=== PATIENT | female | born 1995 | race Caucasian/White ===

== ENCOUNTER 2019-05-25 06:03 | Inpatient (IN) | payer BC ==
[2019-05-25] MEDS ORDERED: Sodium Chloride 0.9% 10 ML Syringe FLUSH PRN (06:27)
[2019-05-25] MEDS ORDERED: Ondansetron 4 MG/2 ML SDV IVPUSH PRN (06:27)
[2019-05-25] MEDS ORDERED: Nalbuphine 10 MG/1 ML Vial IVPUSH PRN (06:27)
[2019-05-25] MEDS ORDERED: Oxytocin/Lactated Ringers 10 UNIT/1,000 ML BAG IV SCH ×2 (06:30)
--- NOTE | 2019-05-25 07:19 | PCM.LDHP ---
L&D History of Present Illness - General Date of Service: 05/25/19 Admit Problem/Dx: Patient Status Order with Admit Dx/Problem 05/25/19 06:27 Patient Status [ADT] Routine Admission Diagnosis/Problem Admission Diagnosis/Problem - History of Present Illness Introduction:: Patient is a 23 year old A- GBS negative female at 38-1 weeks gestational age with routine care who presents today with rupture of membranes. BRYANT of 06/07/19 based on LMP of 08/31/18 and ultrasound done 11/20/18. Prior to , menstrual cycles were regular, approximately 28 days. Patient was not on contraception prior to . Initial labs on 11/20/18 demonstrated blood type A- with negative antibody screen, Hemoglobin of 13.8 and platelets of 304,000. Patient was rubella IgG positive and Hepatitis B surface antigen negative. HIV negative, Chlamydia and gonorrhea negative. Pap smear was normal. Subsequent labs on 03/14/19 demonstrated hemoglobin of 12.2, platelets of 277, 000, negative repeat antibody screen. Glucose screen was initially elevated on 03/14/19 at 187, with normal three hour glucose tolerance test with values of 106, 99, and 112 at 1,2,3 hours respectively. 20 week ultrasound demonstrated normal anatomy. Patient was given Rhogam 03/19/19. Patient GBS negative on 05/10/19. Patient plans to breast feed and is consider pain management options. She would prefer Nubain prior to epidural at this point. - Related Data Allergies/Adverse Reactions: Allergies Allergy/AdvReac Type Severity Reaction Status Date / Time meperidine Allergy Nausea Verified 05/25/19 06:11 Home Medications: Home Meds Vits #93/Iron Fum/FA [ Formula Tablet] 05/25/19 [History] Past Medical History Gastrointestinal History: Reports: Irritable Bowel Syndrome - Past Surgical History HEENT Surgical History: Reports: Adenoidectomy, Oral Surgery, Tonsillectomy Musculoskeletal Surgical History: Reports: Other (See Below) Other Musculoskeletal Surgeries/Procedures:: right foot foreign body removal. Social & Family History - Family History Family Medical History: Noncontributory - Tobacco Use Smoking Status *Q: Never Smoker - Tobacco Core Measures Tobacco Use/Smoking Within Last 30 Days: No - Caffeine Use Caffeine Use: Reports: Coffee - Alcohol Use Alcohol Use History: Yes Date of Last Drink: 09/25/18 - Recreational Drug Use Recreational Drug Use: No - Living Situation & Occupation Living situation: Reports: , with Spouse Occupation: Employed [employer] Review of Systems - Review of Systems: Review Of Systems: See Below General: Reports: No Symptoms HEENT: Reports: No Symptoms Pulmonary: Reports: No Symptoms Cardiovascular: Reports: No Symptoms Gastrointestinal: Reports: No Symptoms Genitourinary: Reports: No Symptoms Musculoskeletal: Reports: No Symptoms Skin: Reports: No Symptoms Psychiatric: Reports: No Symptoms Neurological: Reports: No Symptoms Immunologic: Reports: No Symptoms L&D Exam - Exam Exam: See Below - Vital Signs Vital Signs: Last Vital Signs Temp 98.9 F 05/25/19 06:06 Pulse 90 05/25/19 06:06 Resp 16 05/25/19 06:06 BP 119/65 05/25/19 06:06 Pulse Ox 99 05/25/19 06:06 Weight: 81.102 kg - OB Specific Movement: Active Heart Tones: Present Heart Tones per Min: 150 Heart Rate (FHR) Variability: Moderate (6-25 bmp) Presentation: Vertex - Burger Score Burger Score Effacement: >80% Burger Score Dilation: 1-2 cm - Exam General: Alert, Oriented HEENT: Conjunctiva Clear, EACs Clear, EOMI, Hearing Intact, Mucosa Moist & [place] Neck: Supple, Trachea Midline Lungs: Clear to Auscultation, Normal Respiratory Effort Cardiovascular: Regular Rate, Regular Rhythm GI/Abdominal Exam: Normal Bowel Sounds, Soft, No Distention Back Exam: Normal Inspection Extremities: Normal Inspection, Non-Tender, No Pedal Edema, Normal Capillary Refill Skin: Warm, Dry, Intact Neurological: Cranial Nerves Intact Psychiatric: Alert, Normal Affect, Normal Mood - Problem List (1) with 38 completed weeks gestation SNOMED Code(s): 67544501 ICD Code: Z3A.38 - 38 WEEKS GESTATION OF Status: Acute Current Visit: Yes (2) Rupture of membranes with clear amniotic fluid SNOMED Code(s): 266332964, 883483825 ICD Code: [id number] - Status: Acute Current Visit: Yes (3) Rh negative status during SNOMED Code(s): 302743572 ICD Code: O26.899 - OTH RELATED CONDITIONS, UNSPECIFIED TRIMESTER; Z67.91 - UNSPECIFIED BLOOD TYPE, RH NEGATIVE Status: Acute Current Visit: Yes Problem List Initiated/Reviewed/Updated: Yes Orders Last 24hrs: Active Orders 24 hr Category Date Time Status Patient Status [ADT] Routine ADT 05/25/19 06:27 Active Activity as Tolerated [RC] PFP Care 05/25/19 06:27 Active Communication Order [RC] ASDIRECTED Care 05/25/19 06:27 Active Heart Tones [RC] ASDIRECTED Care 05/25/19 06:27 Active Non Stress Test [RC] PER UNIT ROUTINE Care 05/25/19 06:27 Active Notify Provider [RC] PFP Care 05/25/19 06:27 Active Notify Provider [RC] PRN Care 05/25/19 06:27 Active Peripheral IV Care [RC] . DIRECTED Care 05/25/19 06:27 Active Vital Signs [RC] PER UNIT ROUTINE Care 05/25/19 06:27 Active Regular Diet [DIET] Diet 05/25/19 Breakfast Active CBC WITH AUTO DIFF [HEME] Routine Lab 05/25/19 06:27 Ordered RAPID PLASMA REAGIN,RPR [CHEM] Routine Lab 05/25/19 06:27 Ordered Lactated Ringers [Ringers, Lactated] 1,000 ml Med 05/25/19 06:30 Active IV ASDIRECTED Nalbuphine [Nubain] Med 05/25/19 06:27 Active 10 mg IVPUSH Q2H PRN Ondansetron [Zofran] Med 05/25/19 06:27 Active 4 mg IVPUSH Q4H PRN Oxytocin/Lactated Ringers [Pitocin in LR 10 Units/1,000 Med 05/25/19 06:30 Active ML] 10 unit in 1,000 ml IV .CONTINUOUS Oxytocin/Lactated Ringers [Pitocin in LR 10 Units/1,000 Med 05/25/19 06:30 Active ML] 10 unit in 1,000 ml IV TITRATE Sodium Chloride 0.9% [Saline Flush] Med 05/25/19 06:27 Active 10 ml FLUSH ASDIRECTED PRN Electronic Heart Tones Ext w TOCO [WOMSER] Oth 05/25/19 06:27 Ordered Routine Electronic Heart Tones Internal [WOMSER] Per Unit Oth 05/25/19 06:27 Ordered Routine Peripheral IV Insertion Adult [OM.PC] Routine Oth 05/25/19 06:27 Ordered Resuscitation Status Routine Resus Stat 05/25/19 06:27 Ordered Medication Orders Lactated Ringer's (Ringers, Lactated) 1,000 mls @ 100 mls/hr IV ASDIRECTED NELDA Oxytocin/Lactated Ringer's (Pitocin In Lr 10 Units/1,000 Ml) 10 unit in 1,000 mls @ 500 mls/hr IV .CONTINUOUS NELDA Oxytocin/Lactated Ringer's (Pitocin In Lr 10 Units/1,000 Ml) 10 unit in 1,000 mls @ 12 mls/hr IV TITRATE NELDA; Protocol Nalbuphine HCl (Nubain) 10 mg IVPUSH Q2H PRN PRN Reason: Pain Ondansetron HCl (Zofran) 4 mg IVPUSH Q4H PRN PRN Reason: Nausea/Vomiting Sodium Chloride (Saline Flush) 10 ml FLUSH ASDIRECTED PRN PRN Reason: Keep Vein Open Assessment/Plan Comment:: Assessment: at 38-1 weeks gestational age with spontaneous rupture of membranes. GBS negative A- with negative antibody screen and Rhogam administration at 28 weeks Plan: We will continue to monitor progress and consider Pitocin to augment labor. Patient is planning on breast feeding and she is considering her pain management options. She would prefer Nubain prior to epidural at this point.
[2019-05-25] MEDS: Lactated Ringers 1,000 ML IV SCH ×3 (07:42→13:56)
[2019-05-25] MEDS ORDERED: fentaNYL 100 MCG/2 ML SDV ONE (12:29)
--- NOTE | 2019-05-25 13:00 | PCM.PREANE ---
Preanesthetic Assessment - Anesthesia/Transfusion/Family Hx Anesthesia History: Prior Anesthesia Without Reaction Transfusion History: No Prior Transfusion(s) - Review of Systems General: No Symptoms Pulmonary: No Symptoms Cardiovascular: No Symptoms Gastrointestinal: No Symptoms Neurological: No Symptoms - Physical Assessment NPO Status Date: 05/25/19 NPO Status Time: 12:00 (CLQ) Vital Signs: Last Vital Signs Temp 98.9 F 05/25/19 06:06 Pulse 90 05/25/19 06:06 Resp 16 05/25/19 06:06 BP 119/65 05/25/19 06:06 Pulse Ox 99 05/25/19 06:06 Height: 1.7 m Weight: 81.102 kg ASA Class: 2 Mental Status: Alert & Oriented x3 Airway Class: Mallampati = 1 Dentition: Reports: Normal Dentition Thyro-Mental Finger Breadths: 3 Mouth Opening Finger Breadths: 3 ROM/Head Extension: Full Lungs: Clear to Auscultation, Normal Respiratory Effort Cardiovascular: Regular Rate, Regular Rhythm - Lab Values: Laboratory Last Values WBC 9.76 K/mm3 (3.98-10.04) 05/25/19 06:42 RBC 3.71 M/mm3 (3.98-5.22) L 05/25/19 06:42 Hgb 10.8 gm/dl (11.2-15.7) L 05/25/19 06:42 Hct 33.0 % (34.1-44.9) L 05/25/19 06:42 MCV 88.9 fl (79.4-94.8) 05/25/19 06:42 MCH 29.1 pg (25.6-32.2) 05/25/19 06:42 MCHC 32.7 g/dl (32.2-35.5) 05/25/19 06:42 RDW Std Deviation 40.7 fL (36.4-46.3) 05/25/19 06:42 Plt Count 248 K/mm3 (182-369) 05/25/19 06:42 MPV 10.9 fl (9.4-12.3) 05/25/19 06:42 Neut % (Auto) 79.0 % (34.0-71.1) H 05/25/19 06:42 Lymph % (Auto) 13.1 % (19.3-51.7) L 05/25/19 06:42 [place] % (Auto) 6.7 % (4.7-12.5) 05/25/19 06:42 Eos % (Auto) 0.7 (0.7-5.8) 05/25/19 06:42 Baso % (Auto) 0.2 % (0.1-1.2) 05/25/19 06:42 Neut # (Auto) 7.71 K/mm3 (1.56-6.13) H 05/25/19 06:42 Lymph # (Auto) 1.28 K/mm3 (1.18-3.74) 05/25/19 06:42 [place] # (Auto) 0.65 K/mm3 (0.24-0.36) H 05/25/19 06:42 Eos # (Auto) 0.07 K/mm3 (0.04-0.36) 05/25/19 06:42 Baso # (Auto) 0.02 K/mm3 (0.01-0.08) 05/25/19 06:42 - Allergies Allergies/Adverse Reactions: Allergies Allergy/AdvReac Type Severity Reaction Status Date / Time meperidine Allergy Nausea Verified 05/25/19 06:11 - Acknowledgements Anesthesia Type Planned: Spinal, Epidural Pt an Appropriate Candidate for the Planned Anesthesia: Yes Alternatives and Risks of Anesthesia Discussed w Pt/Guardian: Yes Pt/Guardian Understands and Agrees with Anesthesia Plan: Yes PreAnesthesia Questionnaire Gastrointestinal History: Reports: Irritable Bowel Syndrome - Past Surgical History HEENT Surgical History: Reports: Adenoidectomy, Oral Surgery, Tonsillectomy Musculoskeletal Surgical History: Reports: Other (See Below) Other Musculoskeletal Surgeries/Procedures:: right foot foreign body removal. - SUBSTANCE USE Smoking Status *Q: Never Smoker Date of Last Drink: 09/25/18 Recreational Drug Use History: No - HOME MEDS Home Medications: Home Meds Vits #93/Iron Fum/FA [ Formula Tablet] 05/25/19 [History] - CURRENT (IN HOUSE) MEDS Current Meds: Current Medications Lactated Ringer's (Ringers, Lactated) 1,000 mls @ 100 mls/hr IV ASDIRECTED NELDA Last Admin: 05/25/19 12:45 Dose: 999 mls/hr Oxytocin/Lactated Ringer's (Pitocin In Lr 10 Units/1,000 Ml) 10 unit in 1,000 mls @ 500 mls/hr IV .CONTINUOUS NELDA Oxytocin/Lactated Ringer's (Pitocin In Lr 10 Units/1,000 Ml) 10 unit in 1,000 mls @ 12 mls/hr IV TITRATE NELDA; Protocol Last Titration: 05/25/19 11:15 Dose: 6 munits/min, 36 mls/hr Nalbuphine HCl (Nubain) 10 mg IVPUSH Q2H PRN PRN Reason: Pain Ondansetron HCl (Zofran) 4 mg IVPUSH Q4H PRN PRN Reason: Nausea/Vomiting Sodium Chloride (Saline Flush) 10 ml FLUSH ASDIRECTED PRN PRN Reason: Keep Vein Open Discontinued Medications Fentanyl (Sublimaze) Confirm Administered Dose 100 mcg .ROUTE .K-MED ONE Stop: 05/25/19 12:30
[2019-05-25] MEDS ORDERED: ePHEDrine 50 MG/ML SDV IVPUSH PRN (13:30)
[2019-05-25] MEDS ORDERED: fentaNYL/Bupivacaine/NS 2 MCG-0.125% 250 ML EPIDUR PRN (13:30)
[2019-05-25] MEDS ORDERED: diphenhydrAMINE 50 MG/ML SDV IVPUSH PRN (13:30)
[2019-05-25] MEDS ORDERED: fentaNYL 100 MCG/2 ML SDV EPIDUR PRN (13:30)
--- NOTE | 2019-05-25 17:02 | PCM.DEL ---
L & D Note - General Info Date of Service: 05/25/19 Mother's Due Date: 06/07/19 - Delivery Note Labor: Spontaneous, Augmented by Oxytocin Delivery Outcome: Livebirth Infant Delivery Method: Spontaneous Vaginal Delivery-Single Infant Delivery Mode: Spontaneous Presentation: Left Occiput Anterior (ROSCOE) Nuchal Cord: None Anesthesia Type: Epidural Amniotic Fluid Description: Clear Episiotomy Type: Midline Laceration: 3rd Degree Suture type: Vicryl Suture size: Other (2-0 and 3-0 Vicryl used) Placenta: Intact, Spontaneous Cord: 3 Vessels Estimated Blood Loss: 400 Resuscitation Needed: Yes : Suctioned, Bulb Syringe, Stimulated, Warmed Provider: Piper Linares Score 1 min: 8 Score 5 min: 9 Second Stage Interventions: Reports: Encouragement Given Delivery Comments (Free Text/Narrative):: Stage 1: Amelia was admitted on 05/25/19 for spontaneous rupture of membrane. On admission, her cervix was dilated to 2 cm. The patient was GBS negative. Patient was given Pitocin for augmentation of labor. Nubain was given and then Epidural was placed for anesthesia. Patient progressed to complete and pushing. Stage 2: On 05/25/19 patient had a normal vaginal delivery of a live female infant at 16:12. APGARs of 8 and 9. Weight of 3310 grams (7 pounds 4.8 ounces) Length of 21.5 inches. There was no nuchal cord present. Infant was delivered in ROSCOE position. The cord was cut by the father of the baby. was placed on mother's abdomen and stimulated and then taken to the warmer for resuscitation. Stage 3: She had spontaneous delivery of an intact placenta in Jw presentation. Three vessel cord. She was given Pitocin and fundal massage. She had a midline 3rd degree perineal laceration with laceration to the left labia majora repaired with both 2-0 and 3-0 Vicryl. Mom and baby were stable to recover. EBL of 400 mL - General Info Date of Service: 05/25/19 Admission Dx/Problem (Free Text): Patient Status Order with Admit Dx/Problem 05/25/19 06:27 Patient Status [ADT] Routine Admission Diagnosis/Problem Admission Diagnosis/Problem - Patient Data Vitals - Most Recent: Last Vital Signs Temp 98.9 F 05/25/19 06:06 Pulse 90 05/25/19 06:06 Resp 16 05/25/19 06:06 BP 119/65 05/25/19 06:06 Pulse Ox 99 05/25/19 06:06 Weight - Most Recent: 81.102 kg I&O - Last 24 Hours: Intake & Output 05/25/19 05/25/19 05/25/19 06:59 14:59 22:59 Output Total 250 Balance -250 Lab Results Last 24 Hours: Laboratory Results - last 24 hr 05/25/19 Range/Units 06:42 WBC 9.76 (3.98-10.04) K/mm3 RBC 3.71 L (3.98-5.22) M/mm3 Hgb 10.8 L (11.2-15.7) gm/dl Hct 33.0 L (34.1-44.9) % MCV 88.9 (79.4-94.8) fl MCH 29.1 (25.6-32.2) pg MCHC 32.7 (32.2-35.5) g/dl RDW Std Deviation 40.7 (36.4-46.3) fL Plt Count 248 (182-369) K/mm3 MPV 10.9 (9.4-12.3) fl Neut % (Auto) 79.0 H (34.0-71.1) % Lymph % (Auto) 13.1 L (19.3-51.7) % [place] % (Auto) 6.7 (4.7-12.5) % Eos % (Auto) 0.7 (0.7-5.8) Baso % (Auto) 0.2 (0.1-1.2) % Neut # (Auto) 7.71 H (1.56-6.13) K/mm3 Lymph # (Auto) 1.28 (1.18-3.74) K/mm3 [place] # (Auto) 0.65 H (0.24-0.36) K/mm3 Eos # (Auto) 0.07 (0.04-0.36) K/mm3 Baso # (Auto) 0.02 (0.01-0.08) K/mm3 Med Orders - Current: Current Medications Diphenhydramine HCl (Benadryl) 25 mg IVPUSH Q6H PRN PRN Reason: pruritis Ephedrine Sulfate (Ephedrine Sulfate) 5 mg IVPUSH ASDIRECTED PRN PRN Reason: Hypotension Fentanyl (Sublimaze) 100 mcg EPIDUR Q3H PRN PRN Reason: Pain Fentanyl/Bupivacaine HCl (Fentanyl/Bupivacaine/Ns 2 Mcg-0.125% 250 Ml) 0 ml EPIDUR CONTINUOUS PRN PRN Reason: Pain Lactated Ringer's (Ringers, Lactated) 1,000 mls @ 100 mls/hr IV ASDIRECTED NELDA Last Admin: 05/25/19 13:56 Dose: 999 mls/hr Oxytocin/Lactated Ringer's (Pitocin In Lr 10 Units/1,000 Ml) 10 unit in 1,000 mls @ 500 mls/hr IV .CONTINUOUS NELDA Oxytocin/Lactated Ringer's (Pitocin In Lr 10 Units/1,000 Ml) 10 unit in 1,000 mls @ 12 mls/hr IV TITRATE NELDA; Protocol Last Titration: 05/25/19 11:15 Dose: 6 munits/min, 36 mls/hr Nalbuphine HCl (Nubain) 10 mg IVPUSH Q2H PRN PRN Reason: Pain Ondansetron HCl (Zofran) 4 mg IVPUSH Q4H PRN PRN Reason: Nausea/Vomiting Sodium Chloride (Saline Flush) 10 ml FLUSH ASDIRECTED PRN PRN Reason: Keep Vein Open Discontinued Medications Fentanyl (Sublimaze) Confirm Administered Dose 100 mcg .ROUTE .K-MED ONE Stop: 05/25/19 12:30 Last Admin: 05/25/19 13:56 Dose: Not Given - Problem List & Annotations (1) with 38 completed weeks gestation SNOMED Code(s): 49054918 Code(s): Z3A.38 - 38 WEEKS GESTATION OF Status: Acute Current Visit: Yes (2) Rh negative status during SNOMED Code(s): 002774722 Code(s): O26.899 - OTH RELATED CONDITIONS, UNSPECIFIED TRIMESTER; Z67.91 - UNSPECIFIED BLOOD TYPE, RH NEGATIVE Status: Acute Current Visit: Yes (3) Vaginal delivery SNOMED Code(s): 619356273 Code(s): O80 - ENCOUNTER FOR FULL-TERM UNCOMPLICATED DELIVERY Status: Acute Current Visit: Yes (4) Third degree perineal laceration during delivery SNOMED Code(s): 22291252, 360625311 Code(s): O70.20 - THIRD DEGREE PERINEAL LACERATION DURING DELIVERY, UNSP Status: Acute Current Visit: Yes - Problem List Review Problem List Initiated/Reviewed/Updated: Yes - Plan Plan:: Plan: * Admit to inpatient following * Continue pitocin per protocol following delivery of placenta and lactated ringers until tolerating regular diet * Regular diet * Vitals per unit routine * assistance as needed * Continue to assess for Lochia * Tylenol and ibuprofen for pain management * Discharge home day number 2 * Follow up on 's blood type and initiate Rhogam if indicated Margarita LOU 05/25/19 5:13 pm
[2019-05-25] MEDS ORDERED: Benzocaine/Menthol 20%-0.5% Spray 56 GM Canister TOP PRN (17:04)
[2019-05-25] MEDS ORDERED: Witch Hazel Medicated Pads 40/Jar TOP PRN (17:04)
[2019-05-25] MEDS: Ibuprofen 600 MG Tab PO PRN (20:37)
--- NOTE | 2019-05-26 06:59 | PCM.PNPP ---
- General Info Date of Service: 05/26/19 Admission Dx/Problem (Free Text): Patient Status Order with Admit Dx/Problem 05/25/19 06:27 Patient Status [ADT] Routine Admission Diagnosis/Problem Admission Diagnosis/Problem Subjective Update: Patient is doing well today. She does report some uterine cramping and some bleeding that she noticed when she first urinated. Otherwise, her pain is manageable. Patient has been up and walking around. She has been able to urinate but has not defecated yet. She did manage to eat a little bit yesterday , but reported that her appetite was decreased. However, this morning she is feeling better. She denies any headache or changes in vision. is going well. Functional Status: Reports: Pain Controlled, Tolerating Diet, Ambulating, Urinating - Review of Systems General: Reports: No Symptoms HEENT: Reports: No Symptoms Pulmonary: Reports: No Symptoms Cardiovascular: Reports: No Symptoms Gastrointestinal: Reports: No Symptoms Genitourinary: Reports: No Symptoms Musculoskeletal: Reports: No Symptoms Skin: Reports: No Symptoms Neurological: Reports: No Symptoms Psychiatric: Reports: No Symptoms - General Info Date of Service: 05/26/19 - Patient Data Vital Signs - Most Recent: Last Vital Signs Temp 97.7 F 05/26/19 03:12 Pulse 85 05/26/19 03:12 Resp 16 05/26/19 03:12 BP 102/63 05/26/19 03:12 Pulse Ox 99 05/26/19 03:12 Weight - Most Recent: 81.102 kg I&O - Last 24 Hours: Intake & Output 05/25/19 05/25/19 05/26/19 14:59 22:59 06:59 Intake Total 4000 Output Total 250 Balance -250 4000 Lab Results - Last 24 Hours: Laboratory Results - last 24 hr 05/25/19 05/26/19 05/26/19 Range/Units 06:42 05:50 05:50 WBC 9.76 11.24 H (3.98-10.04) K/mm3 RBC 3.71 L 2.77 L (3.98-5.22) M/mm3 Hgb 10.8 L 7.9 L D (11.2-15.7) gm/dl Hct 33.0 L 25.0 L (34.1-44.9) % MCV 88.9 90.3 (79.4-94.8) fl MCH 29.1 28.5 (25.6-32.2) pg MCHC 32.7 31.6 L (32.2-35.5) g/dl RDW Std Deviation 40.7 40.9 (36.4-46.3) fL Plt Count 248 205 (182-369) K/mm3 MPV 10.9 10.4 (9.4-12.3) fl Neut % (Auto) 79.0 H 71.3 H (34.0-71.1) % Lymph % (Auto) 13.1 L 19.6 (19.3-51.7) % [place] % (Auto) 6.7 7.9 (4.7-12.5) % Eos % (Auto) 0.7 0.7 (0.7-5.8) Baso % (Auto) 0.2 0.2 (0.1-1.2) % Neut # (Auto) 7.71 H 8.02 H (1.56-6.13) K/mm3 Lymph # (Auto) 1.28 2.20 (1.18-3.74) K/mm3 [place] # (Auto) 0.65 H 0.89 H (0.24-0.36) K/mm3 Eos # (Auto) 0.07 0.08 (0.04-0.36) K/mm3 Baso # (Auto) 0.02 0.02 (0.01-0.08) K/mm3 Blood Type A NEGATIVE Med Orders - Current: Current Medications Benzocaine/Menthol (Dermoplast Pain Relief [place]) 0 gm TOP ASDIRECTED PRN PRN Reason: Perineal Comfort Measure Last Admin: 05/25/19 20:38 Dose: 1 applic Docusate Sodium (Colace) 100 mg PO BID PRN PRN Reason: Constipation Ibuprofen (Motrin) 600 mg PO Q6H PRN PRN Reason: Mild pain or fever Last Admin: 05/25/19 20:37 Dose: 600 mg [place] ([place]) 1 pad TOP ASDIRECTED PRN PRN Reason: Pain Last Admin: 05/25/19 20:38 Dose: 1 applic Discontinued Medications Diphenhydramine HCl (Benadryl) 25 mg IVPUSH Q6H PRN PRN Reason: pruritis Ephedrine Sulfate (Ephedrine Sulfate) 5 mg IVPUSH ASDIRECTED PRN PRN Reason: Hypotension Fentanyl (Sublimaze) Confirm Administered Dose 100 mcg .ROUTE .STK-MED ONE Stop: 05/25/19 12:30 Last Admin: 05/25/19 13:56 Dose: Not Given Fentanyl (Sublimaze) 100 mcg EPIDUR Q3H PRN PRN Reason: Pain Fentanyl/Bupivacaine HCl (Fentanyl/Bupivacaine/Ns 2 Mcg-0.125% 250 Ml) 0 ml EPIDUR CONTINUOUS PRN PRN Reason: Pain Last Admin: 05/25/19 13:30 Dose: 250 ml Lactated Ringer's (Ringers, Lactated) 1,000 mls @ 100 mls/hr IV ASDIRECTED NELDA Last Admin: 05/25/19 13:56 Dose: 999 mls/hr Oxytocin/Lactated Ringer's (Pitocin In Lr 10 Units/1,000 Ml) 10 unit in 1,000 mls @ 500 mls/hr IV .CONTINUOUS NELDA Oxytocin/Lactated Ringer's (Pitocin In Lr 10 Units/1,000 Ml) 10 unit in 1,000 mls @ 12 mls/hr IV TITRATE NELDA; Protocol Last Titration: 05/25/19 11:15 Dose: 6 munits/min, 36 mls/hr Nalbuphine HCl (Nubain) 10 mg IVPUSH Q2H PRN PRN Reason: Pain Ondansetron HCl (Zofran) 4 mg IVPUSH Q4H PRN PRN Reason: Nausea/Vomiting Sodium Chloride (Saline Flush) 10 ml FLUSH ASDIRECTED PRN PRN Reason: Keep Vein Open - Interaction Infant Disposition, : in Room with Family Interaction: Holding Infant Feeding: Attempted ; Nursed Fair/Poor Support Person: - Recovery Exam Fundal Tone: Firm Fundal Level: At Umbilicus Fundal Placement: Midline Lochia Amount: Small Lochia Color: Rubra/Red Perineum Description: Other (see below) Other Perinuem Description: 3rd degree with repair Episiotomy/Laceration: Approximated Bladder Status: Voiding - Exam General: Alert, Oriented HEENT: Pupils Equal, EOMI Lungs: Clear to Auscultation, Normal Respiratory Effort Cardiovascular: Regular Rate, Regular Rhythm GI/Abdominal Exam: Normal Bowel Sounds, Soft, Non-Tender Extremities: Normal Inspection, Non-Tender, No Pedal Edema Skin: Warm, Dry, Intact Neurological: No New Focal Deficit Psy/Mental Status: Alert, Normal Affect, Normal Mood - Problem List & Annotations (1) with 38 completed weeks gestation SNOMED Code(s): 45595725 Code(s): Z3A.38 - 38 WEEKS GESTATION OF Status: Acute Current Visit: Yes (2) Rh negative status during SNOMED Code(s): 911050756 Code(s): O26.899 - OTH RELATED CONDITIONS, UNSPECIFIED TRIMESTER; Z67.91 - UNSPECIFIED BLOOD TYPE, RH NEGATIVE Status: Acute Current Visit: Yes (3) Vaginal delivery SNOMED Code(s): 751063910 Code(s): O80 - ENCOUNTER FOR FULL-TERM UNCOMPLICATED DELIVERY Status: Acute Current Visit: Yes (4) Third degree perineal laceration during delivery SNOMED Code(s): 11239128, 917347569 Code(s): O70.20 - THIRD DEGREE PERINEAL LACERATION DURING DELIVERY, UNSP Status: Acute Current Visit: Yes - Problem List Review Problem List Initiated/Reviewed/Updated: Yes - Plan Plan:: Plan: * Continue inpatient following * Regular diet * Vitals per unit routine * assistance as needed * Continue to assess for Lochia * Tylenol and ibuprofen for pain management * Discharge home day number 2 * Infant is A+ blood type and Rhogam given as indicated Margarita Villasenor MSIII 05/25/19 5:13 pm
[2019-05-26] MEDS: Ibuprofen 600 MG Tab PO PRN ×2 (09:47→18:19)
[2019-05-26] MEDS: Docusate Sodium 100 MG Cap PO PRN ×2 (09:47→18:19)
[2019-05-27] MEDS ORDERED: Ampicillin 2 GM in Sodium Chloride 0.9% 100 ML IV ONE (00:19)
--- NOTE | 2019-05-27 00:28 | PCM.DCSUM1 ---
Discharge Summary - Hospital Course Diagnosis: Stroke: No - Discharge Data Discharge Date: 05/27/19 Discharge Disposition: Home, Self-Care 01 Condition: Good - Referral to Home Health Primary Care Physician: Piper Linares MD - Patient Summary/Data Operative Procedure(s) Performed: , repair of 3rd degree and large labial laceration - Patient Instructions Diet: Usual Diet as Tolerated Activity: No Strenuous Activities Driving: May Drive Today Showering/Bathing: May Shower Wound/Incision Care: Keep Operative Site/Wound Site Clean and Dry Notify Provider of: Fever, Increased Pain, Swelling and Redness, Drainage, Nausea and/or Vomiting - Discharge Plan *PRESCRIPTION DRUG MONITORING PROGRAM REVIEWED*: No *COPY OF PRESCRIPTION DRUG MONITORING REPORT IN PATIENT MERLENE: No Home Medications: Home Meds Vits #93/Iron Fum/FA [ Formula Tablet] 05/25/19 [History] Referrals: Piper Linares MD [Primary Care Provider] - (2 weeks) - Discharge Summary/Plan Comment DC Time >30 min.: No - General Info Date of Service: 05/27/19 Functional Status: Reports: Pain Controlled - Review of Systems General: Reports: No Symptoms HEENT: Reports: No Symptoms Pulmonary: Reports: No Symptoms Cardiovascular: Reports: No Symptoms Gastrointestinal: Reports: No Symptoms Genitourinary: Reports: No Symptoms Musculoskeletal: Reports: No Symptoms Skin: Reports: No Symptoms Neurological: Reports: No Symptoms Psychiatric: Reports: No Symptoms - Patient Data Vitals - Most Recent: Last Vital Signs Temp 37.0 C 05/26/19 15:50 Pulse 104 H 05/26/19 15:50 Resp 14 05/26/19 15:50 BP 111/48 L 05/26/19 15:50 Pulse Ox 97 05/26/19 15:50 Weight - Most Recent: 81.102 kg I&O - Last 24 hours: Intake & Output 05/26/19 05/26/19 05/27/19 14:59 22:59 06:59 Intake Total 2 Balance 2 Lab Results - Last 24 hrs: Laboratory Results - last 24 hr 05/26/19 05/26/19 Range/Units 05:50 05:50 WBC 11.24 H (3.98-10.04) K/mm3 RBC 2.77 L (3.98-5.22) M/mm3 Hgb 7.9 L D (11.2-15.7) gm/dl Hct 25.0 L (34.1-44.9) % MCV 90.3 (79.4-94.8) fl MCH 28.5 (25.6-32.2) pg MCHC 31.6 L (32.2-35.5) g/dl RDW Std Deviation 40.9 (36.4-46.3) fL Plt Count 205 (182-369) K/mm3 MPV 10.4 (9.4-12.3) fl Neut % (Auto) 71.3 H (34.0-71.1) % Lymph % (Auto) 19.6 (19.3-51.7) % [place] % (Auto) 7.9 (4.7-12.5) % Eos % (Auto) 0.7 (0.7-5.8) Baso % (Auto) 0.2 (0.1-1.2) % Neut # (Auto) 8.02 H (1.56-6.13) K/mm3 Lymph # (Auto) 2.20 (1.18-3.74) K/mm3 [place] # (Auto) 0.89 H (0.24-0.36) K/mm3 Eos # (Auto) 0.08 (0.04-0.36) K/mm3 Baso # (Auto) 0.02 (0.01-0.08) K/mm3 Manual Slide Review Abnormal smear Blood Type A NEGATIVE Gel Antibody Screen Negative Screen 1 ros/5 flds - neg RhIG Candidate? Yes Rhogam Indicated Yes, baby rh unknown H Med Orders - Current: Current Medications Benzocaine/Menthol (Dermoplast Pain Relief Sarepta) 0 gm TOP ASDIRECTED PRN PRN Reason: Perineal Comfort Measure Last Admin: 05/25/19 20:38 Dose: 1 applic Docusate Sodium (Colace) 100 mg PO BID PRN PRN Reason: Constipation Last Admin: 05/26/19 18:19 Dose: 100 mg Ibuprofen (Motrin) 600 mg PO Q6H PRN PRN Reason: Mild pain or fever Last Admin: 05/26/19 18:19 Dose: 600 mg Witch Patricia (Tucks) 1 pad TOP ASDIRECTED PRN PRN Reason: Pain Last Admin: 05/25/19 20:38 Dose: 1 applic Discontinued Medications Diphenhydramine HCl (Benadryl) 25 mg IVPUSH Q6H PRN PRN Reason: pruritis Ephedrine Sulfate (Ephedrine Sulfate) 5 mg IVPUSH ASDIRECTED PRN PRN Reason: Hypotension Fentanyl (Sublimaze) Confirm Administered Dose 100 mcg .ROUTE .STK-MED ONE Stop: 05/25/19 12:30 Last Admin: 05/25/19 13:56 Dose: Not Given Fentanyl (Sublimaze) 100 mcg EPIDUR Q3H PRN PRN Reason: Pain Fentanyl/Bupivacaine HCl (Fentanyl/Bupivacaine/Ns 2 Mcg-0.125% 250 Ml) 0 ml EPIDUR CONTINUOUS PRN PRN Reason: Pain Last Admin: 05/25/19 13:30 Dose: 250 ml Lactated Ringer's (Ringers, Lactated) 1,000 mls @ 100 mls/hr IV ASDIRECTED NELDA Last Admin: 05/25/19 13:56 Dose: 999 mls/hr Oxytocin/Lactated Ringer's (Pitocin In Lr 10 Units/1,000 Ml) 10 unit in 1,000 mls @ 500 mls/hr IV .CONTINUOUS NELDA Oxytocin/Lactated Ringer's (Pitocin In Lr 10 Units/1,000 Ml) 10 unit in 1,000 mls @ 12 mls/hr IV TITRATE NELDA; Protocol Last Titration: 05/25/19 11:15 Dose: 6 munits/min, 36 mls/hr Ampicillin Sodium 2 gm/ Sodium (Chloride) 100 mls @ 200 mls/hr IV ONETIME ONE Stop: 05/27/19 00:48 Nalbuphine HCl (Nubain) 10 mg IVPUSH Q2H PRN PRN Reason: Pain Ondansetron HCl (Zofran) 4 mg IVPUSH Q4H PRN PRN Reason: Nausea/Vomiting Sodium Chloride (Saline Flush) 10 ml FLUSH ASDIRECTED PRN PRN Reason: Keep Vein Open - Exam General: Reports: Alert, Oriented HEENT: Reports: Pupils Equal, Pupils Reactive, EOMI, Mucous Membr. Moist/[place] Neck: Reports: Supple Lungs: Reports: Normal Respiratory Effort Cardiovascular: Reports: Regular Rate GI/Abdominal Exam: Normal Bowel Sounds, Soft, Non-Tender, No Organomegaly Rectal (Female) Exam: Normal Exam, Normal Rectal Tone Back Exam: Reports: Normal Inspection, Full Range of Motion Extremities: Normal Inspection, Normal Range of Motion, Non-Tender, No Pedal Edema, Normal Capillary Refill Skin: Reports: Warm, Dry, Intact Wound/Incisions: Reports: Healing Well Neurological: Reports: No New Focal Deficit Psy/Mental Status: Reports: Alert, Normal Affect, Normal Mood
[2019-05-27] MEDS: Docusate Sodium 100 MG Cap PO PRN (03:58)
[2019-05-27] MEDS: Ibuprofen 600 MG Tab PO PRN (03:58)
--- NOTE | 2019-05-27 08:01 | PCM48HPAN ---
Post Anesthesia Note - EVALUATION WITHIN 48HRS OF ANESTHETIC Vital Signs in Normal Range: Yes Patient Participated in Evaluation: Yes Respiratory Function Stable: Yes Airway Patent: Yes Cardiovascular Function Stable: Yes Hydration Status Stable: Yes Pain Control Satisfactory: Yes Nausea and Vomiting Control Satisfactory: Yes Mental Status Recovered: Yes Vital Signs: Last Vital Signs Temp 36.9 C 05/27/19 07:24 Pulse 89 05/27/19 07:24 Resp 16 05/27/19 07:24 BP 113/63 05/27/19 07:24 Pulse Ox 98 05/27/19 07:24 - COMMENTS/OBSERVATIONS Free Text/Narrative:: no anesthesia complications noted
== END 2019-05-27 10:40 | disposition home or self-care (01) | DRG 542 ==
LOC: JD.OBCHECK 06:03 → JD.OB 06:04 → JD.OBCHECK 06:27 → JD.OB 06:27 → OBSVTOIN 16:12 → JD.OB 16:13
PROVIDERS: ADMIT Obstetrics & Gynecology; ATTEND Obstetrics & Gynecology
PROC: 10E0XZZ Delivery of Products of Conception, External Approach (ICD-10-PCS; principal; 2019-05-25)
PROC: 0DQR0ZZ Repair Anal Sphincter, Open Approach (ICD-10-PCS; 2019-05-25)
PROC: 3E0R3BZ Introduction of Anesthetic Agent into Spinal Canal, Percutaneous Approach (ICD-10-PCS; 2019-05-25)
DX: O70.20 Third degree perineal laceration during delivery, unspecified (principal); Z3A.38 38 weeks gestation of pregnancy; Z37.0 Single live birth
CPT/HCPCS: 01967; 36415; 51701; 59025; 59409; 85025; 85461; 86850; 86900; 86901; A9270-GY; J2590; J2790; J3010; J7120